=== PATIENT | male | born 1990 | race Caucasian/White ===

== ENCOUNTER 2017-02-02 19:59 | Emergency (ER) | payer OTHER ==
[~2017-02-02] VITALS: Ht 185.4 cm; Wt 76.5 kg
[2017-02-02 20:43] LABS: EOSINOPHIL (%) 1.5 % (0-5); EOSINOPHIL COUNT 0.1 K/uL (0-0.3); HEMATOCRIT 42.6 % (38.0-50.0); IMMATURE GRANULOCYTE (%) 0.3 % (0.0-0.7); INSTRUMENT ABS NEUTROPHIL CT 5.8 K/uL; LYMPHOCYTE COUNT 2.1 K/uL (1.0-2.8); MCH 30.6 PG (29.0-34.0); MCHC 34.7 G/DL (30.0-36.0); MEAN PLAT.VOLUME 9.7 uM^3 (9.0-12.4); MONOCYTE (%) 7.6 % (3-12); MONOCYTE COUNT 0.7 K/uL (0-0.8); NEUTROPHIL (%) 65.9 % (45-76); NEUTROPHIL COUNT 5.8 K/uL (1.8-6.4); PLATELET COUNT 243 K/uL (156-360); RBC DIS.WIDTH-CV 12.4 % (11.8-14.6); RED BLOOD COUNT 4.84 M/uL (4.00-5.50); WHITE BLOOD COUNT 8.8 K/uL (4.1-10.2)
[2017-02-02] MEDS ORDERED: ISENTRESS400 MG PO (20:47)
[2017-02-02] MEDS ORDERED: TRUVADA1 TABLET PO (20:47)
[2017-02-02 20:56] LABS: CHLORIDE 103 mEq/L (99-109); POTASSIUM 3.7 mEq/L (3.7-5.4); SODIUM 139 mEq/L (136-147)
[2017-02-02 20:58] LABS: GLUCOSE 91 mg/dL (70-99)
[2017-02-02 21:00] LABS: ANION GAP 10 MEQ/L (2-14); TOTAL BILIRUBIN 0.6 mg/dL (0.0-1.0)
[2017-02-02 21:02] LABS: ALKALINE PHOSPHATASE 59 IU/L (3-129); GFR ESTIMATE (CALCULATED) > 59 mL/min/
[2017-02-02 21:03] LABS: UREA NITROGEN (BUN) 13 mg/dL (9-23)
[2017-02-02 21:04] LABS: DIRECT BILIRUBIN 0.2 mg/dL (0.0-0.3)
[2017-02-02 21:16] VITALS: BP 132/82
[2017-02-03 11:14] LABS: HPCA INDEX 0.11
[2017-02-03 11:15] LABS: AHBS INDEX 512.48; HEPATITIS B SURFACE ANTIBODY REACTIVE; HIV INDEX 0.09; HIV-1/2 AB/AG COMBO Nonreactive
== END 2017-02-02 21:17 | disposition home or self-care (01) ==
LOC: EME 19:59
PROVIDERS: Physician Assistant
DX: Z20.6 Contact with and (suspected) exposure to human immunodeficiency virus [HIV] (principal); S50.811A Abrasion of right forearm, initial encounter; S50.812A Abrasion of left forearm, initial encounter; Y04.8XXA Assault by other bodily force, initial encounter; Y07.59 Other non-family member, perpetrator of maltreatment and neglect; Y99.0 Civilian activity done for income or pay
CPT/HCPCS: 80048; 80076; 85025; 86703; 86706; 86803; 99281; 99284

== ENCOUNTER 2017-02-04 17:49 | Emergency (ER) | payer OTHER ==
[~2017-02-04] VITALS: Ht 185.4 cm; Wt 76.0 kg
[~2017-02-04 17:49] MED LIST: ISENTRESS400 MG PO; TRUVADA1 TABLET PO
[2017-02-04 19:13] VITALS: BP 113/75
== END 2017-02-04 19:13 | disposition home or self-care (01) ==
LOC: EME 17:49
DX: Z20.6 Contact with and (suspected) exposure to human immunodeficiency virus [HIV] (principal); F17.200 Nicotine dependence, unspecified, uncomplicated
CPT/HCPCS: 99281; 99282